=== PATIENT | female | born 1985 | race Caucasian/White ===

== ENCOUNTER 2025-01-13 23:24 | Emergency (ER) | payer OTHER ==
[~2025-01-13] VITALS: Ht 162.6 cm; Wt 113.0 kg
[2025-01-13] MEDS ORDERED: KETOROLAC TROMETHAMINE 60 MG/2 ML VIAL IM ONE (23:45)
[2025-01-14] MEDS ORDERED: CELEBREX200 MG PO (01:03)
[2025-01-14] MEDS ORDERED: HYDROCODONE BIT/ACETAMINOPHEN 5/325 MG 1 TAB HOME.PACK PO ONE (01:15)
[2025-01-14 01:35] VITALS: BP 132/78
== END 2025-01-14 01:36 | disposition home or self-care (01) ==
LOC: ED 23:24
DX: M71.22 Synovial cyst of popliteal space [Baker], left knee (principal); M17.12 Unilateral primary osteoarthritis, left knee
CPT/HCPCS: 73700; 96372; 99283-25; A9270; J1885